=== PATIENT | male | born 1970 | race Caucasian/White ===

== ENCOUNTER 2019-06-08 08:47 | Emergency (ER) | payer OTHER ==
--- NOTE | 2019-06-08 09:10 | PHYS DOC ---
Adult General Chief Complaint Chief Complaint: ABDOMINAL PAIN HPI HPI Patient is a 48-year-old male with known kidney stones presenting with acute right flank pain 2 days tried ibuprofen at home with minimal relief call primary office which advised ER evaluation. No fever no dysuria he says this feels identical to his prior kidney stones usually he can take care of her at home but the pain was too severe this time around it is right flank radiates to right groin moderate in nature Review of Systems Review of Systems Constitutional: Denies fever or chills [] Eyes: Denies change in visual acuity, redness, or eye pain [] HENT: Denies nasal congestion or sore throat [] Respiratory: Denies cough or shortness of breath [] Cardiovascular: No additional information not addressed in HPI [] GI: : Denies dysuria or hematuria [] Musculoskeletal: Integument: Denies rash or skin lesions [] Neurologic: Denies headache, focal weakness or sensory changes [] Endocrine: Denies polyuria or polydipsia [] All other systems were reviewed and found to be within normal limits, except as documented in this note. Current Medications Current Medications Current Medications Medications (Trade) Dose Ordered Sig/Les Start Time Stop Time Status Last Admin Dose Admin Ketorolac Tromethamine (Toradol 15mg Vial) 15 mg 1X ONCE 06/08/19 09:00 06/08/19 09:01 UNV Sodium Chloride 1,000 ml @ 1,000 mls/hr 1X ONCE 06/08/19 09:00 06/08/19 09:59 UNV Physical Exam Physical Exam Constitutional: Well developed, well nourished, no acute distress, non-toxic appearance. [] HENT: Normocephalic, atraumatic, bilateral external ears normal, oropharynx moist, no oral exudates, nose normal. [] Eyes: PERRLA, EOMI, conjunctiva normal, no discharge. [] Neck: Normal range of motion, no tenderness, supple, no stridor. [] Pulmonary: Normal respiratory effort no increased work of breathing no obvious chest wall trauma Abdomen: Bowel sounds normal, soft, no tenderness, no masses, no pulsatile masses. [] No inguinal hernia was palpated the patient did say that he had a remote inguinal hernia surgery on the left in the past Skin: Warm, dry, no erythema, no rash. [] Back mild tenderness paraspinous Extremities: No tenderness, no cyanosis, no clubbing, ROM intact, no edema. [] Neurologic: Alert and oriented X 3, normal motor function, normal sensory function, no focal deficits noted. [] Psychologic: Affect normal, judgement normal, mood normal. [] Current Patient Data Vital Signs None Temperature (Fahrenheit): * 98.0 degrees F (97.6-99.5) Patient Temperature * 98.0 degrees F (97.5-99.5) Temperature Source * Oral Blood Pressure Systolic * 195 mm Hg (100-140) H Blood Pressure Diastolic * 116 mm Hg (60-100) H Blood Pressure Mean * 142 mm Hg Pulse Rate * 65 beats per minute (60-90) Respiratory Rate * 18 breaths per minute (12-24) Oxygen Delivery Method * Room Air Bedside Pulse Oximetry * 100 % Treatment Prior to Arrival * No Complaint of Pain * No LOC * Alert Coma Scale Eye Opening * 4-Spontaneous Coma Scale Motor * 6-Obeys Commands Coma Scale Verbal * 5-Oriented EKG EKG [] Radiology/Procedures Radiology/Procedures [] Impressions: Abdomen and pelvis: Small right hepatic lobe hypodensities, too small to further characterize. The spleen, adrenal glands, pancreas and gallbladder are unremarkable. No biliary ductal dilatation. Unremarkable appearance of the kidneys. No hydronephrosis. No intrarenal, ureteral or urinary bladder calculi. Decompressed urinary bladder. Clonic diverticulosis. Dystrophic ossification adjacent to the right posterior aspect of the rectum. Normal appendix. No evidence of bowel obstruction. No ascites. No pathologic lymphadenopathy. Low-attenuation lesion adjacent to the left inguinal canal opening measures 3.0 x 1.3 cm, likely incidental and may relate to prior surgery, prior insult or anatomic variation Bones: No pathologic osseous lesions. Multilevel lumbar spondylosis most prominent L4-L5 and L5-S1. Left L4 unilateral spondylolysis. Impression: 1. No obstructing urolithiasis. 2. Tiny low-attenuation lesions within the right hepatic lobe, statistically benign cysts or hemangiomas although too small to further characterize. 3. Low-attenuation lesion adjacent to the left inguinal canal, uncertain etiology and clinical significance. Comparison with prior imaging studies would be of benefit. Electronically signed by: Thierry Cazares DO (06/08/2019 9:52 AM) [id number] DICTATED AND SIGNED BY: THIERRY CAZARES DO DATE: 06/08/19 0952 CC: ARIANNA KENNEY MD; TOBY DUMONT MD ~ Course & Med Decision Making Course & Med Decision Making Pertinent Labs and Imaging studies reviewed. (See chart for details) []ER workup negative likely musculoskeletal low back pain patient was reassured return precautions discussed and he voiced understanding told about the CT finding of the left groin he thinks it was from a hernia in the past advised routine primary care doctor follow-up Dragon Disclaimer Dragon Disclaimer This electronic medical record was generated, in whole or in part, using a voice recognition dictation system. Departure Departure: Disposition: HOME/RESIDENCE PRIOR TO ADM Condition: STABLE Referrals: ARIANNA KENNEY MD (PCP) TOBY DUMONT MD Jun 08, 2019 09:10
[2019-06-08 09:29] LABS: BASO # 0.1 x10^3/uL (0.0-0.2); BASO % 3 % (0-3); EOS # 0.2 x10^3/uL (0.0-0.7); EOS % 4 % (0-3); HEMATOCRIT 51.6 % (39.0-53.0); HEMOGLOBIN 17.8 g/dL (13.0-17.5); LYMPH % 43 % (24-48); MEAN CORPUSCULAR HEMOGLOBIN 31 pg (25-35); MEAN CORPUSCULAR HGB CONC 35 g/dL (31-37); MEAN CORPUSCULAR VOLUME 89 fL (79-100); MONO # 0.4 x10^3/uL (0.0-1.1); MONO % 9 % (0-9); NEUT # 1.9 x10^3uL (1.8-7.7); NEUT % 41 % (31-73); PLATELET COUNT 284 x10^3/uL (140-400); RED BLOOD COUNT 5.83 x10^6/uL (4.30-5.70); RED CELL DISTRIBUTION WIDTH 13.8 % (11.5-14.5); WHITE BLOOD COUNT 4.6 x10^3/uL (4.0-11.0)
[2019-06-08] MEDS: IV NORMAL SALINE 1,000ML 1,000 ML IV ONE (09:32)
[2019-06-08] MEDS: KETOROLAC 15 MG/ML VIAL. IV ONE (09:33)
[2019-06-08] MEDS: ONDANSETRON PF 4 MG/2 ML VIAL. IVP ONE (09:33)
[2019-06-08] MEDS: MORPHINE SULFATE 4 MG/ML DISP.SYRIN. IV ONE (09:34)
[2019-06-08 09:36] LABS: BACTERIA,URINE 0 /HPF (0-FEW); BILIRUBIN,URINE NEG (NEG); CLARITY,URINE CLEAR; COLOR,URINE STRAW; GLUCOSE,URINE NEG (NEG); NITRITE,URINE NEG (NEG); RBC,URINE 0 /HPF (0-2); UROBILINOGEN,URINE 0.2 mg/dL (0.2 mg/dL); WBC,URINE 0 /HPF (0-4)
[2019-06-08 09:37] VITALS: BP 195/116
[2019-06-08 09:41] LABS: ALBUMIN 4.2 g/dL (3.4-5.0); ALBUMIN/GLOBULIN RATIO 1.1 (1.0-1.7); CALCIUM 9.2 mg/dL (8.5-10.1); CREATININE 1.3 mg/dL (0.7-1.3); GFR 58.4; POTASSIUM 4.2 mmol/L (3.5-5.1); TOTAL BILIRUBIN 0.7 mg/dL (0.2-1.0)
--- NOTE | 2019-06-08 09:55 | RAD ---
CT ABDOMEN PELVIS WO CONTRAST History: Hematuria. Evaluate for right-sided kidney stone. Technique: Noncontrast examination of the abdomen and pelvis. Coronal and sagittal reconstructions were performed. Exposure: One or more of the following individualized dose reduction techniques were utilized for this examination: 1. Automated exposure control 2. Adjustment of the mA and/or kV according to patient size 3. Use of iterative reconstruction technique. Comparison: None Findings: Lower chest: No consolidation or pleural effusion. Abdomen and pelvis: Small right hepatic lobe hypodensities, too small to further characterize. The spleen, adrenal glands, pancreas and gallbladder are unremarkable. No biliary ductal dilatation. Unremarkable appearance of the kidneys. No hydronephrosis. No intrarenal, ureteral or urinary bladder calculi. Decompressed urinary bladder. Clonic diverticulosis. Dystrophic ossification adjacent to the right posterior aspect of the rectum. Normal appendix. No evidence of bowel obstruction. No ascites. No pathologic lymphadenopathy. Low-attenuation lesion adjacent to the left inguinal canal opening measures 3.0 x 1.3 cm, likely incidental and may relate to prior surgery, prior insult or anatomic variation Bones: No pathologic osseous lesions. Multilevel lumbar spondylosis most prominent L4-L5 and L5-S1. Left L4 unilateral spondylolysis. Impression: 1. No obstructing urolithiasis. 2. Tiny low-attenuation lesions within the right hepatic lobe, statistically benign cysts or hemangiomas although too small to further characterize. 3. Low-attenuation lesion adjacent to the left inguinal canal, uncertain etiology and clinical significance. Comparison with prior imaging studies would be of benefit. Electronically signed by: Thierry Olivo DO (06/08/2019 9:52 AM) [id number]
== END 2019-06-08 10:25 | disposition home or self-care (01) ==
LOC: ER 08:47
DX: R10.9 Unspecified abdominal pain (principal); M54.5 Low back pain; Z87.442 Personal history of urinary calculi
CPT/HCPCS: 36415; 74176; 80053; 81001; 85025; 96374; 96375; 99285; J1885; J2270; J2405; J7030

== ENCOUNTER → 2019-06-08 | Outpatient (CLI) | payer OTHER ==
[2019-06-08 09:37] VITALS: BP 195/116
--- NOTE | 2019-06-08 15:12 | RAD ---
EXAM: Lumbar spine, 3 views. HISTORY: Pain. COMPARISON: None. FINDINGS: 3 views of the lumbar spine are obtained. There is degenerative endplate remodeling at all levels. There is disc space narrowing at L4-L5 and L5-S1. There is facet arthropathy predominantly at L5-S1. IMPRESSION: 1. Multilevel degenerative change, described above. 2. No acute osseous finding. Electronically signed by: Debbie Haque MD (06/08/2019 3:08 PM) [id number]
== END | disposition home or self-care (01) ==
LOC: DXRAD 14:26
PROVIDERS: ATTEND Nurse Practitioner Adult Health
DX: M48.061 Spinal stenosis, lumbar region without neurogenic claudication (principal); M51.36 Other intervertebral disc degeneration, lumbar region; M12.88 Other specific arthropathies, not elsewhere classified, other specified site
CPT/HCPCS: 72100